=== PATIENT | female | born 1990 | race Two or more races ===

== ENCOUNTER 2024-11-08 17:15 | Emergency (ER) | payer OTHER ==
[~2024-11-08] VITALS: Ht 160 cm; Wt 90.7 kg
[2024-11-08] MEDS ORDERED: IRON236 MG (17:52)
[2024-11-08 18:34] LABS: BASO % 0.8 % (0.1-1.2); EOS # 0.23 (0.04-0.54); EOS % 2.5 % (0.7-7.0); HEMATOCRIT 36.4 % (34.1-44.9); HEMOGLOBIN 11.7 g/dL (11.2-15.7); LYMPH # 2.26 (1.18-3.74); LYMPH % 24.4 % (19.3-53.1); MEAN CORPUSCULAR HEMOGLOBIN 23.6 pg (25.6-32.2); MONO # 0.59 (0.24-0.82); MONO % 6.4 % (4.7-12.5); NEUT # 6.08 (1.56-6.13); NEUT % 65.6 % (34.0-71.1); PLATELET COUNT 378 K/uL (163-369); RED BLOOD COUNT 4.95 M/uL (3.93-5.22); RED CELL DISTRIBUTION WIDTH 15.3 % (11.6-14.4)
== END 2024-11-08 20:43 | disposition home or self-care (01) ==
LOC: ER 17:15
PROVIDERS: General Practice
DX: O20.9 Hemorrhage in early pregnancy, unspecified (principal); Z3A.01 Less than 8 weeks gestation of pregnancy